=== PATIENT | female | born 1975 | race Caucasian/White ===

== ENCOUNTER 2022-03-05 07:45 | Emergency (ER) | payer OTHER ==
[~2022-03-05] VITALS: Ht 170.2 cm; Wt 66.0 kg
[2022-03-05 11:18] LABS: BASOPHILS % 0.6 % (0.0-2.0); EOSINOPHILS % 1.3 % (0.0-5.0); HEMATOCRIT. 38.4 % (36.0-48.0); HEMOGLOBIN. 12.7 g/dL (12.0-16.0); LYMPHOCYTES % 25.2 % (20.0-50.0); MEAN CORPUSCULAR HEMOGLOBIN 29.7 pg (28.0-32.0); MEAN CORPUSCULAR VOLUME 89.5 fL (81.0-99.0); MEAN PLATELET VOLUME 10.7 fl (7.4-10.4); MONOCYTES % 5.2 % (2.0-8.0); NEUTROPHILS % 67.7 % (40.0-76.0); PLATELET 210 x1000/uL (130-400); RED BLOOD CELL COUNT 4.29 mill/uL (4.2-5.4); RED CELL DISTRIBUTION WIDTH 14.8 % (11.6-14.6)
[2022-03-05 11:26] LABS: CHLORIDE 105 mEq/L (98-107)
[2022-03-05 11:32] LABS: ETHANOL BLOOD < 10 mg/dL
[2022-03-05] MEDS: PAROXETINE HCL 10MG TABLET PO SCH (11:39)
[2022-03-05] MEDS: ARIPIPRAZOLE 5MG TABLET PO SCH (11:39)
[2022-03-05 13:37] LABS: *BARBITURATES SCREEN URINE NEGATIVE (NEGATIVE); *BENZODIAZEPINES SCREEN URINE NEGATIVE (NEGATIVE); *COCAINE SCREEN URINE NEGATIVE (NEGATIVE); METHADONE URINE SCREEN NEGATIVE (NEGATIVE); OPIATES URINE SCREEN NEGATIVE (NEGATIVE); PHENCYCLIDINE URINE SCREEN NEGATIVE (NEGATIVE)
[2022-03-05 13:44] LABS: *AMPHETAMINES SCREEN URINE PRESUMTIVE POSITIVE (NEGATIVE); CANNABINOID URINE SCREEN PRESUMTIVE POSITIVE (NEGATIVE)
[2022-03-06] MEDS: ARIPIPRAZOLE 5MG TABLET PO SCH (09:00)
[2022-03-06] MEDS: PAROXETINE HCL 10MG TABLET PO SCH (09:00)
[2022-03-06] MEDS ORDERED: ACETAMINOPHEN 325MG TABLET PO ONE (15:45)
[2022-03-07] MEDS: ARIPIPRAZOLE 5MG TABLET PO SCH (09:25)
[2022-03-07] MEDS: PAROXETINE HCL 10MG TABLET PO SCH (09:25)
[2022-03-07] MEDS ORDERED: ARIPIPRAZOLE 5MG TABLET PO SCH (12:00)
[2022-03-07 21:25] VITALS: BP 115/60
[2022-03-08] MEDS ORDERED: ARIPIPRAZOLE 5MG TABLET PO SCH (09:00)
== END 2022-03-07 22:00 ==
LOC: ER 08:01
DX: R45.851 Suicidal ideations (principal); Z20.822 Contact with and (suspected) exposure to COVID-19; Z88.9 Allergy status to unspecified drugs, medicaments and biological substances; Z88.8 Allergy status to other drugs, medicaments and biological substances
CPT/HCPCS: 36415; 80048; 80305; 80307; 80320; 80329; 85025; 87426; 99285; C9803; U0003; U0005; G0480

== ENCOUNTER 2025-02-09 17:41 | Emergency (ER) | payer MEDICARE, MEDICAID ==
[~2025-02-09] VITALS: Ht 170.2 cm; Wt 109.0 kg
[2025-02-09 17:57] VITALS: O2SAT 97
[2025-02-09] MEDS: HALOPERIDOL LACTATE 5MG/ML VIAL IM ONE (18:59)
[2025-02-09 19:21] LABS: BASOPHILS % 0.5 % (0.0-2.0); EOSINOPHILS % 0.6 % (0.0-5.0); HEMATOCRIT. 35.7 % (36.0-48.0); HEMOGLOBIN. 11.7 g/dL (12.0-16.0); LYMPHOCYTES % 17.7 % (20.0-50.0); MEAN PLATELET VOLUME 8.9 fl (7.4-10.4); MONOCYTES % 6.3 % (2.0-8.0); NEUTROPHILS % 74.9 % (40.0-76.0); PLATELET 225 x1000/uL (130-400); RED BLOOD CELL COUNT 4.06 mill/uL (4.2-5.4); RED CELL DISTRIBUTION WIDTH 14.9 % (11.6-14.6)
[2025-02-09 19:34] LABS: HCG SCREEN NEGATIVE
[2025-02-09 19:36] LABS: UREA NITROGEN BLOOD 13 mg/dL (9-23)
[2025-02-09 19:37] LABS: CREATININE 0.7 mg/dL (0.6-1.0)
[2025-02-09 19:38] LABS: ETHANOL BLOOD < 10 mg/dL (<10)
[2025-02-09 19:39] LABS: ASPARTATE AMINOTRANSFERASE 13 IU/L (<34); BILIRUBIN DIRECT < 0.1 mg/dL (<=3.0); BILIRUBIN TOTAL 0.3 mg/dL (0.1-1.0); PROTEIN TOTAL 7.1 g/dL (6.0-8.3)
[2025-02-10 04:17] LABS: *AMPHETAMINES SCREEN URINE NEGATIVE (NEGATIVE); *BARBITURATES SCREEN URINE NEGATIVE (NEGATIVE); *BENZODIAZEPINES SCREEN URINE NEGATIVE (NEGATIVE); *COCAINE SCREEN URINE NEGATIVE (NEGATIVE)
[2025-02-10 04:18] LABS: CANNABINOID URINE SCREEN NEGATIVE (NEGATIVE); ECSTASY MDMA SCREEN URINE NEGATIVE (NEGATIVE); METHADONE URINE SCREEN NEGATIVE (NEGATIVE); OPIATES URINE SCREEN NEGATIVE (NEGATIVE); PHENCYCLIDINE URINE SCREEN NEGATIVE (NEGATIVE)
[2025-02-10 11:10] VITALS: BP 111/63; PULSE 95; RESP 19; TEMP 36.8; O2SAT 99
== END 2025-02-10 11:16 | disposition home or self-care (01) ==
LOC: ER 17:41
DX: R45.851 Suicidal ideations (principal); F17.200 Nicotine dependence, unspecified, uncomplicated; F20.9 Schizophrenia, unspecified; F32.9 Major depressive disorder, single episode, unspecified; Z90.49 Acquired absence of other specified parts of digestive tract; Z79.899 Other long term (current) drug therapy
CPT/HCPCS: 80076; 80048; 80307; 80329; 80320; 84703; 85025; 36415; 96372; 99285; J1630; 80305; G0480

== ENCOUNTER 2025-02-10 13:08 | Emergency (ER) | payer MEDICARE, MEDICAID ==
[~2025-02-10] VITALS: Ht 167.6 cm; Wt 82.0 kg
[2025-02-10 13:11] VITALS: O2SAT 97
[2025-02-10] MEDS: HALOPERIDOL LACTATE 5MG/ML VIAL IM ONE (13:40)
[2025-02-10] MEDS: DIPHENHYDRAMINE 50MG/ML VIAL IV ONE (13:53)
[2025-02-10] MEDS: LORAZEPAM 2MG/ML UD SYRINGE IV SCH (13:54)
[2025-02-10 16:47] LABS: BASOPHILS % 0.3 % (0.0-2.0); EOSINOPHILS % 0.9 % (0.0-5.0); HEMATOCRIT. 38.0 % (36.0-48.0); HEMOGLOBIN. 12.4 g/dL (12.0-16.0); LYMPHOCYTES % 16.4 % (20.0-50.0); MEAN PLATELET VOLUME 9.3 fl (7.4-10.4); MONOCYTES % 5.4 % (2.0-8.0); NEUTROPHILS % 77.0 % (40.0-76.0); PLATELET 197 x1000/uL (130-400); RED BLOOD CELL COUNT 4.37 mill/uL (4.2-5.4); RED CELL DISTRIBUTION WIDTH 14.5 % (11.6-14.6)
[2025-02-10 16:57] LABS: CREATININE 0.6 mg/dL (0.6-1.0)
[2025-02-10 16:58] LABS: ETHANOL BLOOD < 10 mg/dL (<10); UREA NITROGEN BLOOD 15 mg/dL (9-23)
[2025-02-10] MEDS: LORAZEPAM 2MG/ML UD SYRINGE IM NR (18:41)
[2025-02-11] MEDS: LORAZEPAM 0.5MG TABLET PO ONE (04:59)
[2025-02-11 09:58] LABS: *AMPHETAMINES SCREEN URINE NEGATIVE (NEGATIVE); *BARBITURATES SCREEN URINE NEGATIVE (NEGATIVE); *BENZODIAZEPINES SCREEN URINE NEGATIVE (NEGATIVE); *COCAINE SCREEN URINE NEGATIVE (NEGATIVE); CANNABINOID URINE SCREEN NEGATIVE (NEGATIVE); ECSTASY MDMA SCREEN URINE NEGATIVE (NEGATIVE); METHADONE URINE SCREEN NEGATIVE (NEGATIVE); OPIATES URINE SCREEN NEGATIVE (NEGATIVE); PHENCYCLIDINE URINE SCREEN NEGATIVE (NEGATIVE)
[2025-02-11 11:15] LABS: CLARITY URINE CLEAR (CLEAR); COLOR URINE YELLOW (YELLOW); GLUCOSE URINE NEGATIVE (NEGATIVE); KETONES URINE NEGATIVE (NEGATIVE); LEUKOCYTE ESTERASE URINE NEGATIVE (NEGATIVE); NITRITE URINE NEGATIVE (NEGATIVE); OCCULT BLOOD URINE NEGATIVE (NEGATIVE); PH URINE 6.5 (4.5-8.0); PROTEIN URINE NEGATIVE (NEGATIVE); SPECIFIC GRAVITY URINE 1.022 (1.005-1.030); UROBILINOGEN URINE 0.2 E.U./dL (0.2-1.0)
[2025-02-11] MEDS: HYDROXYZINE 25MG TABLET PO PRN (13:13)
[2025-02-11 13:20] VITALS: BP 99/68; PULSE 60; RESP 16; TEMP 36.8; O2SAT 95
[2025-02-11] MEDS ORDERED: QUETIAPINE FUMARATE 50MG TABLET PO SCH (21:00)
== END 2025-02-11 14:16 | disposition still patient (30) ==
LOC: ER 13:16
DX: R45.851 Suicidal ideations (principal); R51.9 Headache, unspecified; F41.9 Anxiety disorder, unspecified; G40.909 Epilepsy, unspecified, not intractable, without status epilepticus; Z88.8 Allergy status to other drugs, medicaments and biological substances; Z90.49 Acquired absence of other specified parts of digestive tract; Z86.59 Personal history of other mental and behavioral disorders; Z98.890 Other specified postprocedural states; Z20.822 Contact with and (suspected) exposure to COVID-19
CPT/HCPCS: 80305 ×2; 80048; 80320; 85025; 87086; 36415; 96372; 96374; 96375; 99285; 87426; 81003; 93005; J1200; J1630; J2060; G0480

== ENCOUNTER 2025-03-08 11:17 | Emergency (ER) | payer MEDICARE, MEDICAID ==
[~2025-03-08] VITALS: Ht 167.6 cm; Wt 100.0 kg
[2025-03-08 11:24] VITALS: O2SAT 98
[2025-03-08 11:40] VITALS: BP 108/76; PULSE 108; RESP 18; TEMP 36.9; O2SAT 98
== END 2025-03-08 11:56 | disposition home or self-care (01) ==
LOC: ER 11:17
DX: F20.9 Schizophrenia, unspecified (principal); F31.9 Bipolar disorder, unspecified; F41.9 Anxiety disorder, unspecified; Z79.899 Other long term (current) drug therapy; Z90.49 Acquired absence of other specified parts of digestive tract
CPT/HCPCS: 99282

== ENCOUNTER 2025-03-19 09:57 | Emergency (ER) | payer MEDICARE, MEDICAID ==
[~2025-03-19] VITALS: Ht 167.6 cm; Wt 90.0 kg
[2025-03-19 10:00] VITALS: O2SAT 99
[2025-03-19] MEDS: LORAZEPAM 2MG/ML UD SYRINGE IM SCH (11:39)
[2025-03-19] MEDS: DIPHENHYDRAMINE 50MG/ML VIAL IM PRN (11:39)
[2025-03-19] MEDS: ZIPRASIDONE MESYLATE 20MG/VIAL IM ONE (11:39)
[2025-03-19] MEDS: HALOPERIDOL LACTATE 5MG/ML VIAL IM ONE (12:31)
[2025-03-19 12:47] LABS: BASOPHILS % 0.8 % (0.0-2.0); EOSINOPHILS % 2.1 % (0.0-5.0); HEMATOCRIT. 33.6 % (36.0-48.0); HEMOGLOBIN. 11.2 g/dL (12.0-16.0); LYMPHOCYTES % 28.0 % (20.0-50.0); MEAN PLATELET VOLUME 9.0 fl (7.4-10.4); MONOCYTES % 6.5 % (2.0-8.0); NEUTROPHILS % 62.6 % (40.0-76.0); PLATELET 222 x1000/uL (130-400); RED BLOOD CELL COUNT 3.89 mill/uL (4.2-5.4); RED CELL DISTRIBUTION WIDTH 14.9 % (11.6-14.6)
[2025-03-19 13:00] LABS: HCG SCREEN INDETERMINATE
[2025-03-19 13:05] LABS: CREATININE 0.5 mg/dL (0.6-1.0); UREA NITROGEN BLOOD 6 mg/dL (9-23)
[2025-03-19] MEDS: HALOPERIDOL LACTATE 5MG/ML VIAL IM SCH (15:19)
[2025-03-19 19:01] LABS: CLARITY URINE CLEAR (CLEAR); COLOR URINE YELLOW (YELLOW); GLUCOSE URINE NEGATIVE (NEGATIVE); KETONES URINE NEGATIVE (NEGATIVE); LEUKOCYTE ESTERASE URINE NEGATIVE (NEGATIVE); NITRITE URINE NEGATIVE (NEGATIVE); OCCULT BLOOD URINE NEGATIVE (NEGATIVE); PH URINE 6.5 (4.5-8.0); PROTEIN URINE NEGATIVE (NEGATIVE); SPECIFIC GRAVITY URINE 1.020 (1.005-1.030); UROBILINOGEN URINE 0.2 E.U./dL (0.2-1.0)
[2025-03-19 19:08] LABS: *AMPHETAMINES SCREEN URINE NEGATIVE (NEGATIVE); *BARBITURATES SCREEN URINE NEGATIVE (NEGATIVE); *BENZODIAZEPINES SCREEN URINE NEGATIVE (NEGATIVE); *COCAINE SCREEN URINE NEGATIVE (NEGATIVE); CANNABINOID URINE SCREEN NEGATIVE (NEGATIVE); ECSTASY MDMA SCREEN URINE NEGATIVE (NEGATIVE); METHADONE URINE SCREEN NEGATIVE (NEGATIVE); OPIATES URINE SCREEN NEGATIVE (NEGATIVE); PHENCYCLIDINE URINE SCREEN NEGATIVE (NEGATIVE)
[2025-03-20] MEDS: LORAZEPAM 2MG/ML UD SYRINGE IM NR (06:57)
[2025-03-20] MEDS: DIPHENHYDRAMINE 50MG/ML VIAL IM PRN (06:57)
[2025-03-20 13:22] VITALS: BP 123/73; PULSE 77; RESP 14; TEMP 36.8; O2SAT 95
== END 2025-03-20 13:32 ==
LOC: ER 09:57
DX: R45.851 Suicidal ideations (principal); F41.9 Anxiety disorder, unspecified; F32.A Depression, unspecified; F20.9 Schizophrenia, unspecified; F29 Unspecified psychosis not due to a substance or known physiological condition; Z79.899 Other long term (current) drug therapy; N89.8 Other specified noninflammatory disorders of vagina; Z20.822 Contact with and (suspected) exposure to COVID-19
CPT/HCPCS: 80305; 80048; 81003; 80307; 80329; 80320; 84703; 84702; 85025; 36415; 96372 ×2; 99285; 87426; J1200 ×2; J1630; J2060 ×2; J3486; G0480

== ENCOUNTER 2025-04-09 10:53 | Emergency (ER) | payer MEDICARE, MEDICAID ==
[~2025-04-09] VITALS: Ht 170.2 cm; Wt 91.0 kg
[2025-04-09 11:03] VITALS: TEMP 37.2; O2SAT 100
[2025-04-09] MEDS: LORAZEPAM 0.5MG TABLET PO ONE (11:55)
[2025-04-09 11:58] VITALS: BP 121/68; PULSE 93; RESP 15; O2SAT 100
== END 2025-04-09 11:59 | disposition home or self-care (01) ==
LOC: ER 10:53
DX: F41.9 Anxiety disorder, unspecified (principal); F20.9 Schizophrenia, unspecified; Z90.49 Acquired absence of other specified parts of digestive tract
CPT/HCPCS: 81025; 99283

== ENCOUNTER 2025-04-11 19:24 | Emergency (ER) | payer MEDICARE, MEDICAID ==
[~2025-04-11] VITALS: Ht 167.6 cm; Wt 100.0 kg
[2025-04-11 19:33] VITALS: O2SAT 98
[2025-04-11] MEDS: LORAZEPAM 1MG TABLET PO ONE ×2 (20:40→22:26)
[2025-04-11 20:53] LABS: BASOPHILS % 0.6 % (0.0-2.0); EOSINOPHILS % 1.3 % (0.0-5.0); HEMATOCRIT. 38.7 % (36.0-48.0); HEMOGLOBIN. 12.7 g/dL (12.0-16.0); LYMPHOCYTES % 20.5 % (20.0-50.0); MEAN PLATELET VOLUME 9.7 fl (7.4-10.4); MONOCYTES % 7.5 % (2.0-8.0); NEUTROPHILS % 70.1 % (40.0-76.0); PLATELET 227 x1000/uL (130-400); RED BLOOD CELL COUNT 4.44 mill/uL (4.2-5.4); RED CELL DISTRIBUTION WIDTH 15.8 % (11.6-14.6)
[2025-04-11 21:04] LABS: *AMPHETAMINES SCREEN URINE NEGATIVE (NEGATIVE); *BARBITURATES SCREEN URINE NEGATIVE (NEGATIVE); *BENZODIAZEPINES SCREEN URINE NEGATIVE (NEGATIVE)
[2025-04-11 21:05] LABS: *COCAINE SCREEN URINE NEGATIVE (NEGATIVE); CANNABINOID URINE SCREEN NEGATIVE (NEGATIVE); ECSTASY MDMA SCREEN URINE NEGATIVE (NEGATIVE); METHADONE URINE SCREEN NEGATIVE (NEGATIVE); OPIATES URINE SCREEN NEGATIVE (NEGATIVE); PHENCYCLIDINE URINE SCREEN NEGATIVE (NEGATIVE)
[2025-04-11 21:12] LABS: CREATININE 0.7 mg/dL (0.6-1.0); HCG SCREEN NEGATIVE; UREA NITROGEN BLOOD 9 mg/dL (9-23)
[2025-04-11 21:14] LABS: ASPARTATE AMINOTRANSFERASE 12 IU/L (<34)
[2025-04-11 21:15] LABS: BILIRUBIN DIRECT < 0.1 mg/dL (<=3.0); BILIRUBIN TOTAL 0.3 mg/dL (0.1-1.0); PROTEIN TOTAL 7.1 g/dL (6.0-8.3)
[2025-04-11] MEDS ORDERED: DIPHENHYDRAMINE 50MG CAPSULE PO ONE (22:00)
[2025-04-11] MEDS: DIPHENHYDRAMINE 25MG CAPSULE PO NR (22:25)
[2025-04-11] MEDS: OLANZAPINE 5MG TABLET ODT PO ONE (22:26)
[2025-04-12] MEDS: ZIPRASIDONE MESYLATE 20MG/VIAL IM ONE (00:40)
[2025-04-12 09:47] VITALS: BP 100/57; PULSE 78; RESP 18; TEMP 36.7; O2SAT 100
== END 2025-04-12 10:15 ==
LOC: ER 19:24
DX: F23 Brief psychotic disorder (principal); R45.851 Suicidal ideations; F32.A Depression, unspecified; F25.9 Schizoaffective disorder, unspecified; F41.9 Anxiety disorder, unspecified; F17.200 Nicotine dependence, unspecified, uncomplicated; Z20.822 Contact with and (suspected) exposure to COVID-19; Z90.49 Acquired absence of other specified parts of digestive tract; Z79.899 Other long term (current) drug therapy
CPT/HCPCS: 80076; 80305; 80048; 80307; 80329; 80320; 84703; 83735; 85025; 36415; 96372; 99285; 87426; Q0163; A6449; J3486; G0480

== ENCOUNTER 2025-04-23 08:31 | Emergency (ER) | payer MEDICARE, MEDICAID ==
[~2025-04-23] VITALS: Ht 167.6 cm; Wt 113.0 kg
[2025-04-23 08:33] VITALS: O2SAT 98
[2025-04-23 08:49] VITALS: TEMP 36.8; O2SAT 97
[2025-04-23 09:30] VITALS: BP 132/86; PULSE 81; RESP 14
[2025-04-23] MEDS: KETOROLAC 15MG/ML VIAL IV ONE (09:30)
[2025-04-23] MEDS: ACETAMINOPHEN 325MG TABLET PO ONE (09:30)
== END 2025-04-23 10:34 | disposition left against medical advice (07) ==
LOC: ER 08:31
DX: R51.9 Headache, unspecified (principal); Z53.21 Procedure and treatment not carried out due to patient leaving prior to being seen by health care provider
CPT/HCPCS: 96374; 99281; J1885

== ENCOUNTER 2025-05-25 14:57 | Emergency (ER) | payer MEDICARE, MEDICAID ==
[~2025-05-25] VITALS: Ht 170.2 cm; Wt 80.0 kg
[2025-05-25 15:02] VITALS: O2SAT 100
[2025-05-25] MEDS: ACETAMINOPHEN 325MG TABLET PO ONE (15:15)
[2025-05-25] MEDS: LORAZEPAM 0.5MG TABLET PO ONE (16:53)
[2025-05-25] MEDS: DIPHENHYDRAMINE 50MG/ML VIAL IM ONE (16:54)
[2025-05-25 16:57] VITALS: BP 132/79; PULSE 95; RESP 15; TEMP 36.6; O2SAT 100
[2025-06-17] MEDS ORDERED: QUET25TA MT (12:36)
== END 2025-05-25 16:58 | disposition home or self-care (01) ==
LOC: ER 14:57
DX: R51.9 Headache, unspecified (principal); F20.9 Schizophrenia, unspecified; F41.9 Anxiety disorder, unspecified; F32.A Depression, unspecified; Z20.822 Contact with and (suspected) exposure to COVID-19; Z90.49 Acquired absence of other specified parts of digestive tract
CPT/HCPCS: 99285; 70450; 87426; 85025; 96372; J3490; J1200; J2060; 80048; 80076; 80305; 80307; 80320; 81003; G0480

== ENCOUNTER 2025-05-25 20:34 | Emergency (ER) | payer MEDICARE, MEDICAID ==
[~2025-05-25] VITALS: Ht 165.1 cm; Wt 91.0 kg
[2025-05-25 21:10] VITALS: O2SAT 99
[2025-05-25] MEDS: LORAZEPAM 2MG/ML UD SYRINGE IM NR (21:57)
[2025-05-25] MEDS: OLANZAPINE 10 MG/VIAL IM ONE (21:57)
[2025-05-25 22:04] LABS: BASOPHILS % 0.6 % (0.0-2.0); EOSINOPHILS % 0.7 % (0.0-5.0); HEMATOCRIT. 38.1 % (36.0-48.0); HEMOGLOBIN. 12.3 g/dL (12.0-16.0); LYMPHOCYTES % 15.6 % (20.0-50.0); MEAN PLATELET VOLUME 10.1 fl (7.4-10.4); MONOCYTES % 7.2 % (2.0-8.0); NEUTROPHILS % 75.9 % (40.0-76.0); PLATELET 191 x1000/uL (130-400); RED BLOOD CELL COUNT 4.39 mill/uL (4.2-5.4); RED CELL DISTRIBUTION WIDTH 15.7 % (11.6-14.6)
[2025-05-26 01:16] LABS: CLARITY URINE CLOUDY (CLEAR); COLOR URINE YELLOW (YELLOW); GLUCOSE URINE NEGATIVE (NEGATIVE); KETONES URINE NEGATIVE (NEGATIVE); LEUKOCYTE ESTERASE URINE TRACE (NEGATIVE); NITRITE URINE NEGATIVE (NEGATIVE); OCCULT BLOOD URINE NEGATIVE (NEGATIVE); PH URINE 7.5 (4.5-8.0); PROTEIN URINE NEGATIVE (NEGATIVE); SPECIFIC GRAVITY URINE 1.013 (1.005-1.030); UROBILINOGEN URINE 0.2 E.U./dL (0.2-1.0)
[2025-05-26 01:48] LABS: *AMPHETAMINES SCREEN URINE NEGATIVE (NEGATIVE); *BARBITURATES SCREEN URINE NEGATIVE (NEGATIVE); *BENZODIAZEPINES SCREEN URINE NEGATIVE (NEGATIVE); *COCAINE SCREEN URINE NEGATIVE (NEGATIVE); METHADONE URINE SCREEN NEGATIVE (NEGATIVE)
[2025-05-26 01:49] LABS: CANNABINOID URINE SCREEN NEGATIVE (NEGATIVE); ECSTASY MDMA SCREEN URINE NEGATIVE (NEGATIVE); OPIATES URINE SCREEN PRESUMPTIVE POSITIVE (NEGATIVE); PHENCYCLIDINE URINE SCREEN NEGATIVE (NEGATIVE)
[2025-05-26] MEDS: ACETAMINOPHEN 325MG TABLET PO ONE (02:17)
[2025-05-26 02:52] LABS: BACTERIA URINE NONE SEEN; RBC URINE NONE SEEN /hpf (0-2); SQUAMOUS EPITHELIAL CELL URINE NONE SEEN /lpf (RARE/1+); WBC URINE NONE SEEN /hpf (0-2)
[2025-05-26] MEDS: OLANZAPINE 10 MG/VIAL IM ONE (03:58)
[2025-05-26 04:07] LABS: UREA NITROGEN BLOOD 6 mg/dL (9-23)
[2025-05-26 04:08] LABS: CREATININE 0.6 mg/dL (0.6-1.0)
[2025-05-26 04:09] LABS: ETHANOL BLOOD < 10 mg/dL (<10); PROTEIN TOTAL 6.7 g/dL (6.0-8.3)
[2025-05-26 04:10] LABS: ASPARTATE AMINOTRANSFERASE 36 IU/L (<34); BILIRUBIN DIRECT < 0.1 mg/dL (<=3.0)
[2025-05-26 04:11] LABS: BILIRUBIN TOTAL 0.2 mg/dL (0.1-1.0)
[2025-05-26 10:30] VITALS: BP 112/64; PULSE 72; RESP 16; TEMP 36.3; O2SAT 100
== END 2025-05-26 10:31 | disposition home or self-care (01) ==
LOC: ER 20:34
DX: Z00.00 Encounter for general adult medical examination without abnormal findings (principal); F29 Unspecified psychosis not due to a substance or known physiological condition; R45.851 Suicidal ideations; F20.9 Schizophrenia, unspecified; F41.9 Anxiety disorder, unspecified; Z20.822 Contact with and (suspected) exposure to COVID-19
CPT/HCPCS: 85025; 96372 ×2; 99285; 87426; 80076; 80305; 80048; 81003; 80307; 80320; J3490 ×2; J2060; G0480

== ENCOUNTER 2025-06-11 00:55 | Emergency (ER) | payer MEDICARE, MEDICAID ==
[~2025-06-11] VITALS: Ht 172.7 cm; Wt 78.0 kg
[2025-06-11 01:00] VITALS: O2SAT 99
[2025-06-11] MEDS: MORPHINE SULFATE 4 MG/ML INJ (FOR IV/IM USE) IM ONE (01:26)
[2025-06-11] MEDS: ACETAMINOPHEN 325MG TABLET PO ONE (01:27)
[2025-06-11] MEDS: HYDROCODONE/ACETAMINOPHEN 5/325MG TABLET PO ONE (03:59)
[2025-06-11] MEDS ORDERED: HYDR-4001 MT (04:44)
[2025-06-11 04:59] VITALS: BP 125/48; PULSE 88; RESP 16; TEMP 36.8; O2SAT 100
== END 2025-06-11 05:08 | disposition home or self-care (01) ==
LOC: ER 00:55
DX: S52.591A Other fractures of lower end of right radius, initial encounter for closed fracture (principal); F20.9 Schizophrenia, unspecified; W01.0XXA Fall on same level from slipping, tripping and stumbling without subsequent striking against object, initial encounter; Y93.89 Activity, other specified; Y92.89 Other specified places as the place of occurrence of the external cause; Y99.8 Other external cause status
CPT/HCPCS: 99285; 73080; 73110; 29125; 96372; J2270; A6449

== ENCOUNTER 2025-06-13 17:40 | Emergency (ER) | payer MEDICARE, MEDICAID ==
[~2025-06-13] VITALS: Ht 167.6 cm; Wt 95.0 kg
[~2025-06-13 17:40] MED LIST: HYDR-4001 MT
[2025-06-13 18:08] VITALS: O2SAT 95
[2025-06-13] MEDS ORDERED: HYDR-4001 MT (19:46)
[2025-06-13] MEDS ORDERED: NALO4SPR BOTHNSTRLS (19:46)
[2025-06-13] MEDS: OXYCODONE HCL/ACETAMINOPHEN 5/325MG TABLET PO ONE (20:05)
[2025-06-13 20:07] VITALS: BP 123/78; PULSE 93; RESP 16; TEMP 36.8; O2SAT 95
[2025-06-17] MEDS ORDERED: QUET25TA MT (12:36)
[2025-06-27] MEDS ORDERED: HYDR-4001 MT (16:27)
[2025-06-27] MEDS ORDERED: IBUP-2028 MT (16:29)
[2025-06-27] MEDS ORDERED: NALO4SPR BOTHNSTRLS (16:29)
[2025-06-27] MEDS ORDERED: ACET-2708 MT (16:29)
== END 2025-06-13 20:08 | disposition home or self-care (01) ==
LOC: ER 17:40
DX: S62.101A Fracture of unspecified carpal bone, right wrist, initial encounter for closed fracture (principal); F20.9 Schizophrenia, unspecified; F41.9 Anxiety disorder, unspecified; Z76.0 Encounter for issue of repeat prescription; X58.XXXA Exposure to other specified factors, initial encounter; Y93.89 Activity, other specified; Y92.89 Other specified places as the place of occurrence of the external cause; Y99.8 Other external cause status
CPT/HCPCS: 99283